=== PATIENT | female | born 2000 | race African-American/Black ===

== ENCOUNTER 2023-05-17 09:37 | Outpatient (REF) | payer OTHER, SELFPAY ==
[2023-05-17 12:29] LABS: Hematocrit 31.9 % (37.0-47.0); Hemoglobin 10.2 g/dl (12.0-16.0); Mean Corpuscular Hemoglobin 28.9 pg (27.0-33.0); Mean Corpuscular Volume 90.4 fL (80.0-98.0); Mean Platelet Volume 11.9 fL (9.4-12.3); Platelet Count 220 X10*3/uL (160-400); Red Blood Count 3.53 X10*6/uL (4.20-5.50); Red Cell Distribution Width 13.1 % (11.0-16.0); White Blood Count 4.3 X10*3/uL (4.8-10.8)
[2023-05-17 13:09] LABS: Alanine Aminotransferase 10 U/L (0-31); Albumin Level 3.9 g/dL (3.5-5.0); Alkaline Phosphatase 34 U/L (39-117); Anion Gap 12 (12-20); Aspartate Amino Transferase 17 U/L (5-31); Bilirubin Total 0.4 mg/dL (0.0-1.0); Blood Urea Nitrogen 4 mg/dL (9-16); Calcium 9.2 mg/dL (8.4-10.2); Carbon Dioxide 21 mmol/L (22-29); Chloride 108 mmol/L (96-108); Cholesterol 170 mg/dL; Estimated Glomerular Filt Rate > 60; Glucose Fasting 82 mg/dL (60-99); HDL Cholesterol 64 mg/dL; LDL Cholesterol Calculated 96 mg/dl; Potassium 4.1 mmol/L (3.3-5.1); Sodium 137 mmol/L (135-145); Triglycerides 52 mg/dL
[2023-05-17 13:26] LABS: Thyroid Stimulating Hormone 0.68 uIU/mL (0.32-4.0)
== END 2023-05-17 09:38 | disposition home or self-care (01) ==
LOC: HO.LAB 09:37
PROVIDERS: Absent Provider Internal Medicine; PCP Internal Medicine; Visit Provider Advanced Practice Midwife
DX: Z00.00 Encounter for general adult medical examination without abnormal findings (principal); N92.6 Irregular menstruation, unspecified; Z87.42 Personal history of other diseases of the female genital tract
CPT/HCPCS: 36415; 80053; 80061; 84443; 85027

== ENCOUNTER 2023-05-17 09:37 | Outpatient (AMB) | payer OTHER, SELFPAY ==
[2023-05-17 09:51] VITALS: BP 110/64; BMI 26.2
--- NOTE | 2023-05-17 09:51 | MHC.OFFVIS ---
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 Accompanied by: Self / Same As Patient Allergies No Known Allergies Allergy (Verified 05/17/23 09:52) Medication List - Last Reconciled 05/17/23 by Luciana Grijalva CNM No Known Home Meds Is last menstrual period known: Yes Last menstrual period: 05/15/23 HPI New patient irregular bleeding HPI Details Patient's visit is scheduled here today to discuss irregular periods in fact she has been keeping records since 2017 and review of the last year reveals that her cycles are not all that irregular in fact her cycle length ranges as follows:, looking backword, 40 days, 36 days, 34 days, 34 days, 42 days, 33 days, 30 days, 34 days, 32 days, 29 days,. they last 4-5 days they are very heavy and crampy especially the 1st couple of days. Patient states she is a vegetarian and eats very healthy she works out in the gym and she has gained weight over the year but she does not think that that has anything to do with it because she thinks it is all muscle weight. She has been doing some research online and has questions about what might be wrong with her because when she does get her periods which are 4-5 days in length they are very heavy she has bled through tampons pads articles of clothing even down to her mattress. She says they are debilitating with cramping and she says she knows that is not normal. She has been doing some research and is wondering about endometriosis she says her grandmother has the same bill this her and when she was her age she did not get a period for year and she does not know if her grandmother had endometriosis but she thinks that maybe she did . She does not take any medications at all she is abstinent and is not actually with anybody and is not planning to be intimate with anybody until she gets . 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 She saw her primary care provider a while back but did not remember exactly when and did not know for sure if she had had blood work ordered for her or not she does need a Pap smear she has never had 1 but she did not come prepared for that today. [facility] Surgical History (Updated 05/17/23 @ 09:58 by Arianna Briseno CMA) History of ureter repair Family History Mother Hypertension Father No problems noted. Social History Housing: Apartment Alcohol intake: never Patient Tobacco Use Status: Never used Tobacco e-Cigarette/Vaping Use: Never Used Second Hand Smoke Exposure: No service: No Current occupational status: employed Current occupational exposures/hazards: No Cognitive needs: No Hearing needs: No Vision needs: Yes Female Reproductive History Menstrual Date of last menstrual period: 05/15/23 control method: none Total pregnancies: 0 Physical Exam Vital Signs: Last Vital Signs BP 110/64 05/17/23 09:51 BMI result Body Mass Index 26.2 Assessment & Plan Assessment & Plan (1) Hx of dysmenorrhea: Code(s): Z87.42 - Personal history of other diseases of the female genital tract (2) History of menorrhagia: Code(s): Z87.42 - Personal history of other diseases of the female genital tract (3) Menstrual periods irregular: Code(s): N92.6 - Irregular menstruation, unspecified Plan Patient's visit is scheduled here today to discuss irregular periods in fact she has been keeping records since 2017 and review of the last year reveals that her cycles are not all that irregular in fact her cycle length ranges as follows:, looking backword, 40 days, 36 days, 34 days, 34 days, 42 days, 33 days, 30 days, 34 days, 32 days, 29 days,. Patient states she is a vegetarian and eats very healthy she works out in the gym and she has gained weight over the year but she does not think that that has anything to do with it because she thinks it is all muscle weight. She has been doing some research online and has questions about what might be wrong with her because when she does get her periods which are 4-5 days in length they are very heavy she has bled through tampons pads articles of clothing even down to her mattress. She says they are debilitating with cramping and she says she knows that is not normal. She has been doing some research and is wondering about endometriosis she says her grandmother has the same bill this her and when she was her age she did not get a period for year and she does not know if her grandmother had endometriosis but she thinks that maybe she did . She does not take any medications at all she is abstinent and is not actually with anybody and is not planning to be intimate with anybody until she gets . 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 She saw her primary care provider a while back but did not remember exactly when and did not know for sure if she had had blood work ordered for her or not she does need a Pap smear she has never had 1 but she did not come prepared for that today. A full discussion of all of the possibilities took place including that her cycles are not actually all that irregular but it is wonderful that she has been keeping such excellent track. In addition on questioning she was able to identify the biological signals that her body gives her of the time of ovulation and it does in fact correlate with when the appt is predicting that she probably is in her fertile time. She gets fertile mucus libido changes as well as the start of premenstrual type symptoms such as breasts and bloating. Given all this I let her know that this was excellent information for her for when she does get and wishes to conceive and for her that would be in that order. Also discussed that she will need a Pap smear but that could be done at a future visit. Reviewed that while her periods can be debilitating and are very disruptive they may not in fact be abnormal per se and that it is also extremely common for young women to have really awful periods. Discussed that the usual methods of managing these periods involve some method of hormonal manipulation such as contour section. Discussed all of the very many methods of contraception that would be recommended and even those that would not be and why they would not be. In her case combination pills or there analogs would be first-line choices before consideration of the others IUDs might be further down the line as she has not even had sex yet. I also told her that I would order an ultrasound and also some blood work just to check for anemia and her thyroid is and review of the chart revealed that her primary had ordered fasting blood work for her so since she is fasting today she is going to go get them all done today and I printed all of them up for her so that she can get them all to on together at the lab this morning. Her next visit will include a review of all of the results and the ultrasound. Though I told her to not expect any pathology however we will see what is found. Discussed that really endometriosis ends up being managed often by use of contraceptive methods but the only definitive diagnosis is done surgically and she expressed interest in finding out ?what is wrong?. Her next visit will be for her 1st annual with Pap with discussion of the ultrasound and labs. Orders: Orders Thyroid Stimulating Hormone Today N92.6 - Irregular menstruation, unspecified, Z87.42 - Personal history of other diseases of the female genital tract Complete Blood Count no Diff Today N92.6 - Irregular menstruation, unspecified, Z87.42 - Personal history of other diseases of the female genital tract US pelvic and transvaginal Today N92.6 - Irregular menstruation, unspecified, Z87.42 - Personal history of other diseases of the female genital tract Coding Level of Care Code Est Pt Level 3 (61005) Diagnoses Hx of dysmenorrhea Z87.42 History of menorrhagia Z87.42 Menstrual periods irregular N92.6
== END 2023-05-17 10:47 | disposition home or self-care (01) ==
LOC: HO.HWS 09:38
PROVIDERS: PCP Internal Medicine; Visit Provider Advanced Practice Midwife
DX: Z87.42 Personal history of other diseases of the female genital tract (principal); N92.6 Irregular menstruation, unspecified
CPT/HCPCS: 99213

== ENCOUNTER 2023-06-03 11:02 | Outpatient (REF) | payer OTHER, SELFPAY ==
--- NOTE | ~2023-06-03 | US_ITS ---
EXAMINATION: US PELVIS CLINICAL INFORMATION: Irregular menstruation. COMPARISON: None available. TECHNIQUE: Ultrasound of the pelvis is performed using both transabdominal and transvaginal transducers along with Doppler. Transvaginal imaging is performed due to inadequate visualization transabdominally. FINDINGS: Uterus: The uterus is anteverted and measures 9.4 x 3.5 x 5.2 cm. The double wall endometrial thickness is 13 mm. The uterus is smooth in contour and has normal myometrial echogenicity. No visible fibroid. Adnexa: Both ovaries are visualized. There is normal color flow to the adnexa. There is no ovarian torsion. There is no pelvic ascites or fluid collection. Right ovary measures 3.8 x 2.2 x 1.9 cm. Volume 10.1 mL. Antral follicle count approximately 12. Left ovary measures 4.0 x 2.4 x 2.7 cm. Volume 11.0 mL. Antral follicle count approximately 12. US/US pelvic and transvaginal IMPRESSION: Enlarged ovaries with PCO morphology. Correlate clinically. Normal-appearing uterus. No visible endometrial polyp or uterine lesion.
== END 2023-06-03 11:03 | disposition home or self-care (01) ==
LOC: HO.US 11:02
PROVIDERS: PCP Internal Medicine; Visit Provider Advanced Practice Midwife
DX: N92.6 Irregular menstruation, unspecified (principal); Z87.42 Personal history of other diseases of the female genital tract
CPT/HCPCS: 76830; 76856

== ENCOUNTER 2023-08-23 09:13 | Outpatient (AMB) | payer OTHER, SELFPAY ==
--- NOTE | 2023-08-23 09:14 | MHC.OFFVIS ---
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 She is also here to review labs that were done after the last visit and an ultrasound. She has a history of painful long cycles. She is not sexually active and has never been. She is physically fit and works out at the gym she is a vegan. She has been told that she is anemic but she can not tolerate the iron very good very regularly so she takes it sometimes. Previous visit has had been around her painful heavy periods which she thought was much more irregular than they were full discussion about all the different things that correlate with this took place and occluding possible remedies. In addition she tells me today that in the past she had very long periods of missed periods. she recounts at age 15 not getting a period for 81 days. [facility] Surgical History History of ureter repair Family History Mother Hypertension Father No problems noted. Social History Housing: Apartment Alcohol intake: never Patient Tobacco Use Status: Never used Tobacco e-Cigarette/Vaping Use: Never Used Second Hand Smoke Exposure: No service: No Current occupational status: employed Current occupational exposures/hazards: No Cognitive needs: No Hearing needs: No Vision needs: Yes Female Reproductive History Menstrual Age of Menarche: 11 Duration of menses: 3-5 days Date of last menstrual period: 08/17/23 control method: none Total pregnancies: 0 Physical Exam Vital Signs: Last Vital Signs BP 110/60 10/17/23 09:15 BMI result Body Mass Index 25.3 Const General: healthy appearing, comfortable, no acute distress, well developed and alert Nutritional Appearance: average body habitus Orientation/consciousness: patient oriented x3 Limitations: no limitations HEENT Head: Yes normocephalic Neck Neck: Yes normal visual inspection Chest Chest palpation & inspection: normal inspection of the chest Breast/axilla inspection: normal inspection of the breasts and normal inspection of the axillae Breast/axilla palpation: normal palpation of the breasts and normal palpation of the axillae Resp Effort & Inspection: normal respiratory effort GI Inspection: Yes normal to inspection, No Abdominal wall edema and No distended Palpation (GI): Soft to palpation and nontender General: Yes bladder normal to palpation External Female Exam: normal external appearance and normal appearance of the urethra Speculum Exam - Vagina: normal appearance of the vagina, normal palpation and normal vaginal discharge Speculum Exam - Cervix: normal appearance of the cervix, normal palpation and nontender Bimanual exam- vagina & uterus: normal bimanual exam, normal palpation, uterine size normal, bladder normal to palpation, consistency normal, normal palpation, uterine mobility normal, uterine shape normal, No Cervical tenderness present, non-tender and no cervical motion tenderness Bimanual Exam- Adnexa, other: normal adnexae, no masses, normal and No adnexal tenderness Neuro General: patient oriented x3 Results Reviewed Results Reviewed: shy: Keith España Age/Sex: 22/F : 2000 Unit#: [id number] Attend Dr: Luciana Grijalva CNM Re05/17/23 Status: DEP [facility] SPEC : [id number] FELECIA: 05/17/23 STATUS: COMP REQ : [id number] RECD: 05/17/[address]: Luciana Grijalva CNM COMP: 05/17/23 ENTERED: 05/17/[address]: Merline Mcdonald MD ORDERED: CBC No Diff Test Result Flag Reference Site WBC 4.3 L 4.8-10.8 X10*3/uL RBC 3.53 L 4.20-5.50 X10*6/uL HGB 10.2 L 12.0-16.0 g/dl HCT 31.9 L 37.0-47.0 % MCV 90.4 80.0-98.0 fL MCH 28.9 27.0-33.0 pg MCHC 32.0 31.0-35.0 g/dl RDW 13.1 11.0-16.0 % PLT 220 160-400 X10*3/uL MPV 11.9 9.4-12.3 fL NRBC Pct Auto 0.0 0.0-0.2 /100WBC NRBC Abs Auto 0.000 0.0-0.012 X10*3/uL Name: Keith España Age/Sex: 22/F : 2000 Unit#: [id number] Attend Dr: Luciana Grijalva CNM Re05/17/23 Status: DEP [facility] Dis[facility]: SPEC : [id number] FELECIA: 05/17/23 STATUS: COMP REQ : [id number] RECD: 05/17/[address]: Luciana Grijalva COMP: 05/17/23-132 ENTERED: 05/17/23-[address]: Merline Mcdonald MD ORDERED: CMP Fast, Lipid Panel, TSH Test Result Flag Reference Site Sodium 137 135-145 mmol/L Potassium 4.1 3.3-5.1 mmol/L CL 108 96-108 mmol/L CO2 21 L 22-29 mmol/L Gap 12 12-20 BUN 4 L 9-16 mg/dL Creat 0.76 0.5-1.4 mg/dL EGFR > 60 NOTE: For -Micronesian individuals, multiply the result by 1.210. Chronic Kidney Disease: Estimated GFR < 60 mL/min/1.73m2 Severe Kidney Disease: Estimated GFR < 15 mL/min/1.73m2 FBS 82 60-99 mg/dL CA 9.2 8.4-10.2 mg/dL Total Bili 0.4 0.0-1.0 mg/dL AST (GOT) 17 5-31 U/L ALT (GPT) 10 0-31 U/L Protein, Total 7.0 6.5-8.0 g/dL Alb 3.9 3.5-5.0 g/dL Triglyceride 52 mg/dL Desirable Triglyceride: less than 150 mg/dL Borderline High Triglyceride 150-199 mg/dL High Triglyceride: 200-499 mg/dL Very High Triglyceride: greater than or equal to 5OO mg/dL Chol 170 mg/dL Desirable Cholesterol: less than 200 mg/dL Borderline High Cholesterol: 200-239 mg/dL High Cholesterol: greater than 239 mg/dL LDL Calculated 96 mg/dl Desirable LDL: less than 100 mg/dL Near Optimal/Above Optimal LDL: 110-129 mg/dL Borderline High LDL: 130-159 mg/dL High LDL: 160-189 mg/dL Very High LDL: greater than or equal to 190 mg/dL HDL 64 mg/dL Desirable HDL: greater than 40 mg/dL Note: This HDL assay may give artificially low results in patients with liver disease. Alk Phos 34 L 39-117 U/L TSH 3rd Gen. 0.68 0.32-4.0 uIU/mL TSH 3rd Generation ([facility]) Patient: Keith España MR#: [id number] : 2000 Acct:[id number] Age/Sex: 22 / F ADM Date: 06/03/23 Loc: [facility].US Attending Dr: Luciana Grijalva CNM Ordering Physician: Luciana Grijalva CNM Date of Service: 06/03/23 Procedure(s): US pelvic and transvaginal Accession Number(s): [id number] cc: Luciana Grijalva CNM~ EXAMINATION: US PELVIS CLINICAL INFORMATION: Irregular menstruation. COMPARISON: None available. TECHNIQUE: Ultrasound of the pelvis is performed using both transabdominal and transvaginal transducers along with Doppler. Transvaginal imaging is performed due to inadequate visualization transabdominally. FINDINGS: Uterus: The uterus is anteverted and measures 9.4 x 3.5 x 5.2 cm. The double wall endometrial thickness is 13 mm. The uterus is smooth in contour and has normal myometrial echogenicity. No visible fibroid. Adnexa: Both ovaries are visualized. There is normal color flow to the adnexa. There is no ovarian torsion. There is no pelvic ascites or fluid collection. Right ovary measures 3.8 x 2.2 x 1.9 cm. Volume 10.1 mL. Antral follicle count approximately 12. Left ovary measures 4.0 x 2.4 x 2.7 cm. Volume 11.0 mL. Antral follicle count approximately 12. US/US pelvic and transvaginal IMPRESSION: Enlarged ovaries with PCO morphology. Correlate clinically. Normal-appearing uterus. No visible endometrial polyp or uterine lesion. Dictated By: Beltran Koroma MD Signed By: <Electronically signed by Beltran Koroma MD in OV> 06/06/23 1403 DD/ 1136 TD/TT: Reproduction Order Processor: ARON Assessment & Plan Assessment & Plan (1) Menstrual periods irregular: Code(s): N92.6 - Irregular menstruation, unspecified (2) Hx of dysmenorrhea: Code(s): Z87.42 - Personal history of other diseases of the female genital tract (3) History of menorrhagia: Code(s): Z87.42 - Personal history of other diseases of the female genital tract (4) Well woman exam with routine gynecological exam: Code(s): Z01.419 - Encounter for gynecological examination (general) (routine) without abnormal findings (5) Cervical cancer screening: Comment: 1st Pap done 08/23/2023. Code(s): Z12.4 - Encounter for screening for malignant neoplasm of cervix (6) PCOS (polycystic ovarian syndrome): Comment: 1)-Irregular long cycles & periods of missed periods in past, 2)- acne, and 3)-ultrasound findings. Code(s): E28.2 - Polycystic ovarian syndrome Plan -----Discussed in this visit the following: healthy balanced diet, regular and consistent exercise, getting recommended health screens, doing the best she can for her particular health concerns, kegel exercises, pap smear screening and followup recommendations, mammography screening and SBE, normal changes in cycles in her life stage--- . ---Discussed PCOS in general and specifically about the interplay of the abnormal hormonal milieu related to being overweight, with the elevations of many hormone levels, including testosterone and estrogen, as well as others that contribute to cycles that are anovulatory and therefore prolonged, and when periods do come they come very heavy, and can contribute to lots of cramping, with passage of clots and anemia. Discussed the common symptoms related to the elvated hormonal levels, including increased facial hair, male pattern hair thinning, acne, and increased central abdominal girth. Discussed the interplay with difficulty getting when desired, but still possible, and therefore the need to contracept as appropriate and when needed. Discussed the role of weight loss as the primary, most important, and most likely to succeed, intervention, in achieving healthier status as regards PCOS, and ovulatory regular cycles. Additionally the very important relationship to elevated insulin levels, and blood sugars, and high risk of pre diabetes, progressing to diabetes as well as other metabolic syndromes related to this was discussed. Also discussed common interventions for some of the above, including if appropriate, use of oral contraceptives, and progestin iuds, and provera. Discussed all of these and in particular discussed OCPs use of patch her NuvaRing and IUD options to regulate periods or deal with heavy menses discussed their side effects length of time of use and future planning for fertility as well. She does keep track of her cycles and does get ovulatory symptoms so it is possible that she was much more irregular in the past her cycles are longer now and her menses are very heavy she has taken up to 2400 mg at 1 time of ibuprofen and I urged her not to ever do that again. Discussed that nonsteroidals are the most effective options but they need to be adhered to in terms of dosage and overuse can cause kidney and liver damage as well as intestinal disturbances. She said it did not help her in any rate. Discussed OCPs and their analogs as the most usual and helpful 1st line step also discussed the anemia and taking of the iron and iron rich diet since she is vegan her options are a little bit limited she will be having an appointment with her primary care provider and I recommended that she discuss this with her as well. We will see her in 1 year but if she decides before then to opt for any of the options that I did discuss in great detail she will call and make an appointment sooner. Discussed that prevention of the heavy menses and regulation of the cycles by use of hormonal method is probably her best option rather than chasing the symptoms after the fact. Orders: Orders Pap Smear Today Z12.4 - Encounter for screening for malignant neoplasm of cervix Coding Level of Care Code Est Pt Prev Care 18-39y([id number]) Diagnoses Menstrual periods irregular N92.6 Hx of dysmenorrhea Z87.42 History of menorrhagia Z87.42 Well woman exam with routine gynecological exam Z01.419 Cervical cancer screening Z12.4 PCOS (polycystic ovarian syndrome) E28.2
[2023-08-23 09:15] VITALS: BP 110/60; BMI 25.3
== END 2023-08-23 10:20 | disposition home or self-care (01) ==
PROVIDERS: PCP Internal Medicine; Visit Provider Advanced Practice Midwife
DX: Z01.419 Encounter for gynecological examination (general) (routine) without abnormal findings (principal); N92.6 Irregular menstruation, unspecified; Z87.42 Personal history of other diseases of the female genital tract; Z12.4 Encounter for screening for malignant neoplasm of cervix; E28.2 Polycystic ovarian syndrome
CPT/HCPCS: 99395

== ENCOUNTER 2023-08-23 09:13 | Outpatient (REF) | payer OTHER, SELFPAY | END 2023-08-23 09:14 | disposition home or self-care (01) | LOC: HO.LNP 09:13 | PROVIDERS: PCP Internal Medicine; Visit Provider Advanced Practice Midwife | DX: Z12.4 Encounter for screening for malignant neoplasm of cervix (principal); Z87.42 Personal history of other diseases of the female genital tract | CPT/HCPCS: 88142 ==

== ENCOUNTER 2023-10-14 07:30 | Outpatient (AMB) | payer OTHER, SELFPAY ==
--- NOTE | 2023-10-14 07:40 | MHC.PC.OV ---
Vital Signs 10/14/23 07:43 Height 5 ft 1 in Weight 134 lb BMI 25.3 BP 102/62 Blood Pressure Location Lt brachial Position Sitting Pulse 71 Pulse Source Pulse Oximeter Pulse Oximetry (%) 99 Oxygen Delivery Method Room Air Intake Visit Reasons: Annual PE Allergies No Known Allergies Allergy (Verified 10/14/23 07:49) Medication List - Last Reconciled 10/14/23 by LESLY Avelar ferrous sulfate 324 mg PO DAILY Tobacco use date assessed: 10/14/23 Dental Screening Dental Screen Date: 10/14/23 Did you have a dental visit in the last 12 months?: Yes Did you have a dental problem in the last 6 months where you did not have access to dental care?: No Was dental information given to patient?: Patient has dentist HPI HPI Comments History of Present Illness Details 22-year-old female past medical history significant for PCOS. Patient of presents today for physical exam. Patient currently following with Luciana Collin for Pap smears last completed 08/23/2023, negative. Patient reports has had anemia in the past last H&H 10.7/31.9. Patient was prescribed oral iron. Patient states she only takes her iron sometimes. Repeat labs ordered. Patient reports she does have debilitating menstrual cramps. Denies any acute concerns. eye exam: Recommended every couple years. [facility] Surgical History History of ureter repair Family History Mother Hypertension Father No problems noted. Social History Housing: Apartment Alcohol intake: never Patient Tobacco Use Status: Never used Tobacco e-Cigarette/Vaping Use: Never Used Second Hand Smoke Exposure: No service: No Current occupational status: employed Current occupational exposures/hazards: No Cognitive needs: No Hearing needs: No Vision needs: Yes Female Reproductive History Menstrual Age of Menarche: 11 Questionnaire PHQ-9 Over the last 2 weeks, how often have you been bothered by any of the following problems? 1. Little interest or pleasure in doing things: not at all 2. Feeling down, depressed, or hopeless: not at all 3. Trouble falling or staying asleep, or sleeping too much: not at all 4. Feeling tired or having little energy: not at all 5. Poor appetite or overeating: not at all 6. Feeling bad about yourself - or that you are a failure or have let yourself or your family down: not at all 7. Trouble concentrating on things, such as reading the newspaper or watching television: not at all 8. Moving or speaking so slowly that other people could have noticed. Or the opposite - being so fidgety or restless that you have been moving around a lot more than usual: not at all 9. Thoughts that you would be better off or of hurting yourself in some way: not at all Total score: 0 Depression Screening Interpretation: Negative Depression Screening Done: Yes Source: Developed by Drs. Flavio Vides, Ruby Mccarthy, Jhonny Gardner and colleagues, with an educational aurelio from [employer] ([email or web address]). Thrive Questionnaire Date Thrive assessed: 10/14/23 I am a: Patient What is your living situation today?: I have a steady place to live Within the past 12 months, did the food you bought not last and you didn't have the money to get more?: Never true Within the past 12 months, did you worry whether your food would run out before you got money to buy more?: Never true Do you have trouble paying for medicines?: No Do you have trouble getting transportation to medical appointments?: No Do you have trouble paying your heating and electricity bill?: No Do you have trouble taking care of your child, family member or friend?: No Do you have trouble with day-to-day activities such as bathing, preparing meals, shopping, managing finances, etc.?: No Are you currently unemployed and looking for a job?: No Are you interested in more education?: No Currently or been in a relationship where the following occur: no concerns reported AUDIT C Alcohol Use Questionnaire (AUDIT-C) 1. How often do you have a drink containing alcohol?: Never Total Score: 0 MITA-7 AMB Questionnaire MITA-7 Date MITA - 7 assessed: 10/14/23 Feeling nervous, anxious, or on edge: 0 = Not at all Not being able to stop or control worryin = Not at all Worrying too much about different things: 0 = Not at all Trouble relaxin = Not at all Being so restless that it is hard to sit still: 0 = Not at all Becoming easily annoyed or irritable: 0 = Not at all Feeling afraid as if something awful might happen: 0 = Not at all Total MITA-7 score (0-4 normal; 5-9 mild; 10-14 moderate; 15-21 severe): 0 Source: Developed by Drs. Flavio Vides, Ruby Mccarthy, Jhonny Gardner and colleagues, with an educational aurelio from [employer] ([email or web address]). MITA-7 Assessment Billing MITA-7 Assessment Tool: MITA-7 Assessment 32617 Review of Systems Const Denies chills, Denies fatigue, Denies fever(s) and Denies poor appetite Eyes Denies no additional complaints ENT Reports Normal hearing present Card Denies chest pain, Denies syncope, Denies rapid heart rate and Denies dyspnea Resp Denies cough and Denies dyspnea GI Denies change in stool character, Denies constipation, Denies diarrhea, Denies nausea and Denies vomiting Denies urinary frequency, Denies dysuria and Denies urinary urgency Neuro Reports Normal hearing present, Denies confusion and Denies syncope Psych Denies confusion Endo Denies fatigue Physical exam (Primary Care) Vital Signs: Last Vital Signs Pulse 71 10/14/23 07:43 BP 102/62 10/14/23 07:43 Pulse Ox 99 10/14/23 07:43 Oxygen Delivery Method Room Air 10/14/23 07:43 BMI result Body Mass Index 25.3 Tobacco/Smoking Status: Tobacco use Status Tobacco use date assessed 10/14/23 10/14/23 07:46 Patient Tobacco Use Status Never used Tobacco 10/14/23 07:41 e-Cigarette/Vaping Use Never Used 10/14/23 07:41 PHQ-9: PHQ-9 Score PHQ-9: Total score 0 10/14/23 07:46 Depression Screening Interpretation: Negative Thrive Assessment: Date of Thrive Assessment Date Thrive assessed 10/14/23 10/14/23 07:46 Currently or been in a relationship where the following occur: no concerns reported Const General: No confusion Orientation/consciousness: No confusion HENMT Head: Yes normocephalic and Yes atraumatic Ears: external ears normal and TM's normal bilaterally General nose exam: Normal external nose present and Normal nasal mucous membranes and turbinates present Face and sinus: Yes normal facial exam and Yes sinuses nontender Mouth: moist mucous membranes Throat: Yes tonsils normal Eyes Conjunctivae: conjunctivae normal Sclerae: sclerae normal Pupils: Equal, round and reactive pupils present and Pupils normal by confrontation EOM: EOMs intact bilaterally Direct Ophthalmoscopy: normal light reflex Neck Neck: Yes no lymphadenopathy and Yes supple Thyroid: Thyroid normal Chest Chest palpation & inspection: normal inspection of the chest Resp Effort & Inspection: normal respiratory effort Auscultation: clear to auscultation bilaterally, no crackles, no rhonchi and no wheezes Cardio Rate: regular rate Rhythm: regular rhythm Peripheral pulses: radial pulses present and dorsalis pedis present GI Inspection: Yes normal to inspection Palpation (GI): Soft to palpation, nontender and No hepatosplenomegaly present Auscultation: normoactive bowel sounds Skin General skin exam: no rashes or lesions noted Neuro General: No confusion Cranial nerves: Yes Equal, round and reactive pupils present and Yes Normal hearing present Cognition (Neuro): normal cognition Gait exam (Neuro): Normal gait present Motor exam (neuro): 5/5 motor strength present throughout Deep tendon reflexes (DTR's): Right brachioradialis reflex intensity grade: 2+, Left brachioradialis reflex intensity grade: 2+, Right patellar reflex intensity grade: 2+ and Left patellar reflex intensity grade: 2+ Extrem General: No edema Assessment and Plan Assessment & Plan (1) Physical exam, annual: Code(s): Z00.00 - Encounter for general adult medical examination without abnormal findings Plan: Follow-up in 1 year. (2) Anemia: Code(s): D64.9 - Anemia, unspecified Plan: Repeat CBC, ferritin and iron studies ordered. (3) Hx of dysmenorrhea: Code(s): Z87.42 - Personal history of other diseases of the female genital tract Plan: Patient advised to take [id number] NSAIDs rotating with Tylenol for this. Can use heating pad. If no improvement of mental so cramping patient advised to follow up with OBGYN to initiate control therapy that was previously talked about with patient. Plan Follow-up in 1 year for physical exam Orders: Orders Complete Blood Count Auto Diff Today Z13.0 - Encounter for screening for diseases of the blood and blood-forming organs and certain disorders involving the immune mechanism IRON PROFILE Today D64.9 - Anemia, unspecified TSH reflex Free T4 Today Z13.29 - Encounter for screening for other suspected endocrine disorder Vitamin D 25-OH Total Today D64.9 - Anemia, unspecified Comprehensive Met. Panel Today D64.9 - Anemia, unspecified Ferritin Today D64.9 - Anemia, unspecified Coding Level of Care Code Est Pt Prev Care 18-39y(67166) Diagnoses Physical exam, annual Z00.00 Anemia D64.9 Hx of dysmenorrhea Z87.42 Additional Codes MITA-7 Assessment Billing - MITA-7 Assessment Tool: MITA-7 Assessment [id number] ([id number]) PHQ-9 - 02994 - PHQ-9 Billing: ([id number])
[2023-10-14 07:43] VITALS: BP 102/62; PULSE 71; O2SAT 99; BMI 25.3
== END 2023-10-14 07:59 | disposition home or self-care (01) ==
PROVIDERS: PCP Internal Medicine; Visit Provider Nurse Practitioner Family
DX: Z00.00 Encounter for general adult medical examination without abnormal findings (principal); D64.9 Anemia, unspecified; Z87.42 Personal history of other diseases of the female genital tract
CPT/HCPCS: 99395

== ENCOUNTER 2023-10-14 08:08 | Outpatient (REF) | payer OTHER, SELFPAY ==
[2023-10-14 08:20] LABS: MANUAL DIFF FLAG NO
[2023-10-14 09:06] LABS: Basophils Percent Auto 0.2 % (0-2); Eosinophils Absolute Auto 0.1 X10*3/uL (0.0-0.4); Hematocrit 34.9 % (37.0-47.0); Hemoglobin 11.5 g/dl (12.0-16.0); Imm Gran Abs Auto 0.02 X10*3/uL (0.00-0.03); Imm Gran Pct Auto 0.4 % (0.0-0.4); Lymphocytes Absolute Auto 1.1 X10*3/uL (1.2-4.9); Lymphocytes Percent Auto 22.1 % (20-40); Mean Corpuscular Hemoglobin 30.4 pg (27.0-33.0); Mean Corpuscular Volume 92.3 fL (80.0-98.0); Mean Platelet Volume 11.2 fL (9.4-12.3); Monocytes Absolute Auto 0.4 X10*3/uL (0.1-1.2); Monocytes Percent Auto 8.7 % (2-11); Neutrophils Absolute Auto 3.3 x10*3/uL (2.0-8.3); Neutrophils Percent Auto 67.6 % (45-73); Platelet Count 193 X10*3/uL (160-400); Red Blood Count 3.78 X10*6/uL (4.20-5.50); Red Cell Distribution Width 12.2 % (11.0-16.0); White Blood Count 4.9 X10*3/uL (4.8-10.8)
[2023-10-14 09:14] LABS: Alanine Aminotransferase 11 U/L (0-31); Albumin Level 4.2 g/dL (3.5-5.0); Alkaline Phosphatase 38 U/L (39-117); Anion Gap 10 (12-20); Aspartate Amino Transferase 19 U/L (5-31); Bilirubin Total 0.4 mg/dL (0.0-1.0); Blood Urea Nitrogen 7 mg/dL (9-16); Calcium 9.4 mg/dL (8.4-10.2); Carbon Dioxide 25 mmol/L (22-29); Chloride 108 mmol/L (96-108); Estimated Glomerular Filt Rate > 60; Glucose Random 63 mg/dL (60-115); Iron 54 mcg/dL (30-160); Percent Iron Saturation 15 % (15-50); Potassium 4.1 mmol/L (3.3-5.1); Sodium 139 mmol/L (135-145); Total Iron Binding Capacity 362 mcg/dL (228-428); Total Protein 7.4 g/dL (6.5-8.0); Unsaturated Iron Binding 308 ug/dL
[2023-10-14 09:34] LABS: Ferritin 8 ng/mL (10-122); TSH reflex Free T4 0.72 uIU/mL (0.32-4.0); Vitamin D 25-OH Total 3.9 ng/mL (>30)
== END 2023-10-14 08:09 | disposition home or self-care (01) ==
LOC: HO.LAB 08:08
PROVIDERS: PCP Internal Medicine; Visit Provider Nurse Practitioner Family
DX: Z13.0 Encounter for screening for diseases of the blood and blood-forming organs and certain disorders involving the immune mechanism (principal); Z13.29 Encounter for screening for other suspected endocrine disorder; D64.9 Anemia, unspecified
CPT/HCPCS: 36415; 80053; 82306; 82728; 83540; 84443; 85025

== ENCOUNTER 2024-09-21 15:11 | Outpatient (AMB) | payer OTHER, SELFPAY ==
[2024-09-21 15:13] VITALS: BP 100/60; BMI 25.3
--- NOTE | 2024-09-21 15:13 | MHC.OFFVIS ---
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 She intends to remain it virgin until she is and she considers whether not she will need control at that time she might consider it or she might not. She is very healthy she has no health concerns she does have primary care provider. She has lots of really good questions about her health and anatomy and we discussed them all today Her periods lately seem to have straightened themselves out and come very regular. She has pain tension to changes in her cycle and wanted to talk more about the different changes through follicular and luteal phase. And what is a normal and what is an abnormal discharge. [facility] Surgical History History of ureter repair Family History Mother Hypertension Father No problems noted. Social History Housing: Apartment Alcohol intake: never Patient Tobacco Use Status: Never used Tobacco e-Cigarette/Vaping Use: Never Used Second Hand Smoke Exposure: No service: No Current occupational status: employed Current occupational exposures/hazards: No Cognitive needs: No Hearing needs: No Vision needs: Yes Female Reproductive History Menstrual Age of Menarche: 11 Duration of menses: 3-5 days Date of last menstrual period: 09/05/24 control method: none Total pregnancies: 0 Date of last pap smear: 08/23/23 (negative) History of abnormal pap smear: Yes Physical Exam Vital Signs: Last Vital Signs BP 100/60 09/21/24 15:13 BMI result Body Mass Index 25.3 Const General: healthy appearing, comfortable, no acute distress, well developed and alert Nutritional Appearance: average body habitus Orientation/consciousness: patient oriented x3 Limitations: no limitations HEENT Head: Yes normocephalic Neck Neck: Yes normal visual inspection Chest Chest palpation & inspection: normal inspection of the chest Breast/axilla inspection: normal inspection of the breasts and normal inspection of the axillae Breast/axilla palpation: normal palpation of the breasts and normal palpation of the axillae Resp Effort & Inspection: normal respiratory effort GI Inspection: Yes normal to inspection, No Abdominal wall edema and No distended Palpation (GI): Soft to palpation and nontender Other: Completing normal external exam vagina is and moist cervix is nulliparous posterior cervical mucus is white and clear consistent with follicular phase Uterus is small anteverted mobile nontender adnexa nontender good tone with Kegel. General: Yes bladder normal to palpation External Female Exam: normal external appearance and normal appearance of the urethra Speculum Exam - Vagina: normal appearance of the vagina, normal palpation and normal vaginal discharge Speculum Exam - Cervix: normal appearance of the cervix, normal palpation and nontender Bimanual exam- vagina & uterus: normal bimanual exam, normal palpation, uterine size normal, bladder normal to palpation, consistency normal, normal palpation, uterine mobility normal, uterine shape normal, No Cervical tenderness present, non-tender and no cervical motion tenderness Bimanual Exam- Adnexa, other: normal adnexae, no masses, normal and No adnexal tenderness Neuro General: patient oriented x3 Results Reviewed Results Reviewed: Name: Keith España Age/Sex: 22/F Attending: Luciana Grijalva CNM : 2000 Submitted by: Luciana Grijalva CNM Copies to: Merline Mcdonald MD MR #: [id number] Status: DEP REF Collected: 08/23/23 Location: [facility] Received: 08/23/23 Interpretation Satisfactory for evaluation. Mild inflammation. Negative for intraepithelial lesion or malignancy. Clinical Information LMP: 08/17/23 Previous PAP test: First pap, WNL Material Received ThinPrep-Cervical Copies To Luciana Grijalva CNM [address] [place] [address] [address] [place], [place] [id number] Merline Mcdonald MD [address] [place] [address] [address] [place], [place] [id number] Electronically Signed By: NAREN Flores (ASCP) 08/26/23 1323 The Pap Test is a screening procedure with the inherent possibility of both false negative and false positive results. Results should be interpreted in the context of historic and current clinical findings. Reliability of the Pap Test is enhanced by performing the test on a regular repetitive basis. Patient: Keith España Age/Sex Patient: Keith España MR#: [id number] : 2000 Acct:[id number] Age/Sex: 22 / F ADM Date: 06/03/23 Loc: . Attending Dr: Luciana Grijalva CNM Ordering Physician: Luciana Grijalva CNM Date of Service: 06/03/23 Procedure(s): US pelvic and transvaginal Accession Number(s): [id number] cc: Luciana Grijalva CNM~ EXAMINATION: US PELVIS CLINICAL INFORMATION: Irregular menstruation. COMPARISON: None available. TECHNIQUE: Ultrasound of the pelvis is performed using both transabdominal and transvaginal transducers along with Doppler. Transvaginal imaging is performed due to inadequate visualization transabdominally. FINDINGS: Uterus: The uterus is anteverted and measures 9.4 x 3.5 x 5.2 cm. The double wall endometrial thickness is 13 mm. The uterus is smooth in contour and has normal myometrial echogenicity. No visible fibroid. Adnexa: Both ovaries are visualized. There is normal color flow to the adnexa. There is no ovarian torsion. There is no pelvic ascites or fluid collection. Right ovary measures 3.8 x 2.2 x 1.9 cm. Volume 10.1 mL. Antral follicle count approximately 12. Left ovary measures 4.0 x 2.4 x 2.7 cm. Volume 11.0 mL. Antral follicle count approximately 12. US/US pelvic and transvaginal IMPRESSION: Enlarged ovaries with PCO morphology. Correlate clinically. Normal-appearing uterus. No visible endometrial polyp or uterine lesion. Dictated By: Beltran Koroma MD Signed By: <Electronically signed by Beltran Koroma MD in OV> 06/06/23 1402 Assessment & Plan Assessment & Plan (1) PCOS (polycystic ovarian syndrome): Comment: 1)-Irregular long cycles & periods of missed periods in past, 2)- acne, and 3)-ultrasound findings. Code(s): E28.2 - Polycystic ovarian syndrome Category: Medical (2) Cervical cancer screening: Comment: 1st Pap done 08/23/2023= neg Code(s): Z12.4 - Encounter for screening for malignant neoplasm of cervix Category: Medical (3) Well woman exam with routine gynecological exam: Code(s): Z01.419 - Encounter for gynecological examination (general) (routine) without abnormal findings Category: Medical (4) Menstrual periods irregular: Comment: Her menses have become very regular at this moment discussed reasons to call and seek discussion and care. Code(s): N92.6 - Irregular menstruation, unspecified Category: Medical Plan -----Discussed in this visit the following: healthy balanced diet, regular and consistent exercise, getting recommended health screens, doing the best she can for her particular health concerns, kegel exercises, pap smear screening and followup recommendations, mammography screening and SBE, normal changes in cycles in her life stage--- . Full teaching about the menstrual cycle done in incredible detail including physical changes that happen throughout the cycle. Also discussed the process of labor and and changes it will occur to her cervix during that time. Also discussed control options and their roles in control but also regulating menses in various different ways and issues involved with them as well. In addition full teaching discussed about HPV virus she is very sure she got vaccinated discussed the Affinity of HPV virus for mucous membranes both genital in orally as she is aware in her line of work. RTC 1 year if she feels she does not need a pelvic exam she may decline it she was fine with the accepting an exam today and it proved to be an educational jumping off point for discussion. Coding Level of Care Code Est Pt Prev Care 18-39y(86025) Diagnoses PCOS (polycystic ovarian syndrome) E28.2 Cervical cancer screening Z12.4 Well woman exam with routine gynecological exam Z01.419 Menstrual periods irregular N92.6
== END 2024-09-21 15:57 | disposition home or self-care (01) ==
LOC: HO.HWSM 15:11
PROVIDERS: PCP Internal Medicine; Visit Provider Advanced Practice Midwife
DX: Z01.419 Encounter for gynecological examination (general) (routine) without abnormal findings (principal); E28.2 Polycystic ovarian syndrome; Z12.4 Encounter for screening for malignant neoplasm of cervix; N92.6 Irregular menstruation, unspecified
CPT/HCPCS: 99395

== ENCOUNTER 2024-10-10 12:49 | Outpatient (REF) | payer OTHER, SELFPAY ==
[2024-10-10 13:01] LABS: MANUAL DIFF FLAG NO
[2024-10-10 13:30] LABS: Basophils Percent Auto 0.2 % (0-2); Eosinophils Absolute Auto 0.2 X10*3/uL (0.0-0.4); Eosinophils Percent Auto 1.9 % (0-4); Hematocrit 37.3 % (37.0-47.0); Hemoglobin 12.8 g/dl (12.0-16.0); Imm Gran Abs Auto 0.03 X10*3/uL (0.00-0.03); Imm Gran Pct Auto 0.3 % (0.0-0.4); Lymphocytes Absolute Auto 1.6 X10*3/uL (1.2-4.9); Lymphocytes Percent Auto 18.5 % (20-40); Mean Corpuscular HGB Conc 34.3 g/dl (31.0-35.0); Mean Corpuscular Hemoglobin 32.2 pg (27.0-33.0); Mean Corpuscular Volume 93.7 fL (80.0-98.0); Mean Platelet Volume 9.9 fL (9.4-12.3); Monocytes Absolute Auto 0.4 X10*3/uL (0.1-1.2); Monocytes Percent Auto 4.3 % (2-11); Neutrophils Absolute Auto 6.4 x10*3/uL (2.0-8.3); Neutrophils Percent Auto 74.8 % (45-73); Platelet Count 238 X10*3/uL (160-400); Red Blood Count 3.98 X10*6/uL (4.20-5.50); Red Cell Distribution Width 11.6 % (11.0-16.0); White Blood Count 8.6 X10*3/uL (4.8-10.8)
[2024-10-10 14:13] LABS: Erythrocyte Sedimentation Rate 14 MM/HR (0-20)
[2024-10-10 14:27] LABS: Alanine Aminotransferase 14 U/L (0-31); Albumin Level 4.2 g/dL (3.5-5.0); Alkaline Phosphatase 29 U/L (39-117); Anion Gap 10 (12-20); Aspartate Amino Transferase 25 U/L (5-31); Bilirubin Total 0.5 mg/dL (0.0-1.0); Blood Urea Nitrogen 5 mg/dL (9-16); Calcium 9.6 mg/dL (8.4-10.2); Carbon Dioxide 24 mmol/L (22-29); Chloride 108 mmol/L (96-108); Estimated Glomerular Filt Rate > 60; Glucose Random 101 mg/dL (60-115); Potassium 3.3 mmol/L (3.3-5.1); Sodium 139 mmol/L (135-145); Total Protein 7.3 g/dL (6.5-8.0)
[2024-10-10 14:59] LABS: Vitamin D 25-OH Total 45.6 ng/mL (>30)
[2024-10-10 15:11] LABS: Folate 15.3 ng/mL (> or = 4.0); Vitamin B12 191 pg/mL (200-900)
[2024-10-11 20:14] LABS: Anti DNA DS Antibody <1 IU/mL
[2024-10-12 11:34] LABS: Anti Nuclear Antibody Screen NEGATIVE (NEGATIVE)
== END 2024-10-10 12:50 | disposition home or self-care (01) ==
LOC: HO.LAB 12:49
PROVIDERS: PCP Internal Medicine; Visit Provider Internal Medicine
DX: R53.83 Other fatigue (principal); E53.8 Deficiency of other specified B group vitamins; E55.9 Vitamin D deficiency, unspecified; L50.9 Urticaria, unspecified; D64.9 Anemia, unspecified
CPT/HCPCS: 36415; 80053; 82306; 82607; 82746; 85025; 85652; 86038; 86225